=== PATIENT | male | born 1950 | race Caucasian/White ===

== ENCOUNTER → 2016-12-17 | Outpatient (CLI) | payer OTHER ==
[~2016-12-17] MED LIST: CERTAGEN PO; CIPRO PO; DAPTOMYCIN; FLEXERIL PO; HYDROCODONE-A1 UDTA3 PO; ZYVOX600 MG PO
--- NOTE | ~2016-12-17 | TH ---
Unit #: [id number] #: [id number] Patient: GENEVA HAWKINS [id number] [address] [place], [place] [address] [id number] O MR#: [id number] NAME: GENEVA HAWKINS : 1950 SEX: M STUDY DATE/TIME: 12/17/2016 UNIT: [facility] ROOM: STUDY DESCRIPTION: Cardiolite imaging. Attending Physician: Ward Marrero M.D. Referring Physician: Ward Marrero M.D. Primary Care Physician: Shine Womack M.D. CARDIOLOGY REPORT EXAM Cardiolite imaging. SUMMARY The patient did a modified Travon protocol. Resting ECG was normal. The stress ECG showed [address] depression V5 and V6. There were PVCs noted. These were rare. One PVC couplet was noted. There was muscle pain and fatigue, but no angina. Heart rate increased from approximately 47 to approximately 125, blood pressure increased from approximately 117/55 to 182/61. Heart rate was approximately 109%. Technetium 99m Cardiolite 10.9 and 35.5 mCi was injected at rest and stress respectively. Appropriate views were obtained. FINDINGS The patient exercised a total of approximately 10 minutes on a modified Travon protocol. Perfusion images demonstrate diaphragmatic artifact, apical thinning and otherwise normal perfusion throughout the myocardium. Summed stress scores is 7, summed difference scores is 7. These changes involve primarily border detection at the base, but also some changes at the apex. End-diastolic volume is 126 ml, ejection fraction is calculated at 55%. Qualitatively this appears to be accurate. There is intestinal artifact, apical thinning, but otherwise normal perfusion throughout the myocardium. Apical thinning is slightly more pronounced during stress than at rest. IMPRESSION 1. Minimal change at the apex. There appears to be very small area of very mild ischemia at the apex. This is not in the anterior wall, or inferior, but only at the apex. It is likely that this is related to chest wall attenuation artifact, but a small area of ischemia cannot be ruled out. No infarction is present. 2. Good exercise tolerance. Dictated by... Eh Fields TD: 12/18/2016 10:28 JOB #: [id number] Unit #: [id number] #: [id number] Patient: GENEVA HAWKINS CARDIOLOGY REPORT Page 1 of 1 X Chris Kumar MD CARDIOLOGY REPORT
== END | disposition home or self-care (01) ==
LOC: CNUC 08:06
DX: I25.10 Atherosclerotic heart disease of native coronary artery without angina pectoris (principal)
CPT/HCPCS: 78452; 93017; A9500